=== PATIENT | female | born 1960 | race Caucasian/White ===

== ENCOUNTER 2017-04-25 07:56 | Day surgery (SDC) | payer BC ==
[~2017-04-25 07:56] MED LIST: RINGERS SOLUTION,LACTATED 1,000 ML IV ONE; RINGERS SOLUTION,LACTATED 1,000 ML IV PRN
[2017-04-25] MEDS ORDERED: RINGERS SOLUTION,LACTATED 1,000 ML IV ONE ×2 (09:56→13:10)
[2017-04-25] MEDS ORDERED: RINGERS SOLUTION,LACTATED 1,000 ML IV PRN (13:51)
--- NOTE | 2017-04-25 14:39 | OR ---
Operative Report - Dictated Report Narrative: OPERATIVE REPORT DATE OF OPERATION: 04/25/2017 PREOPERATIVE DIAGNOSIS: GERD symptoms despite medication. History of colon polyp POSTOPERATIVE DIAGNOSIS: Significant gastropathy (pathology and CLOtest pending). 3 mm cecal polyp. Incomplete colon prep. OPERATION: EGD with biopsies. Colonoscopy with hot biopsy forceps polypectomy in the cecum SURGEON: Shelia Magdaleno MD ANESTHESIA: AKIKO Johnston CRNA INDICATIONS FOR PROCEDURE: FINDINGS: Significant gastropathy with linear prepyloric erythema (pathology and CLOtest pending). Poor colon prep. 3 mm cecal polyp (pathology pending). The patient will require repeat exam after further prep today. NARRATIVE OF PROCEDURE: The patient was identified in the holding area, and prior to the administration of anesthetic, a multidisciplinary timeout was observed. EGD With the patient in the recumbent position, a bite-block was placed, intravenous sedation was administered, and the patient's eyes covered with a towel. The flexible fiberoptic gastroscope was advanced into the posterior pharynx. The supraglottic larynx appeared normal. The cords appeared normal, moved well, and opposed in the midline. The scope was advanced under direct vision into the proximal esophagus which appeared normal. The esophagus appeared freely distensible with normal mucosa. The esophageal mucosa appeared normal down to the gastroesophageal junction which was sharp and noninflamed. The GE junction appeared normally distensible. The scope was advanced into the stomach which was insufflated with air. There was distal antral erythema along prepyloric folds but no [place] ulcers or neoplastic lesions were appreciated including retroflexed view of the gastric fundus. The scope was redirected toward the pylorus. The pylorus appeared patent, again with significant erythema on prepyloric folds. The scope was advanced into the duodenal bulb which appeared normal. The scope was advanced further to the horizontal portion of the duodenum which appeared normal, specifically the villous architecture appeared well preserved and clear bile was present. The scope was slowly withdrawn through the duodenal bulb with confirmation that no active ulcer was present. The scope was withdrawn into the stomach and healthcare sales representative biopsies of gastric mucosa obtained for CLOtest and pathology. The biopsy sites were seen to be hemostatic. The insufflated air was removed, the scope withdrawn from the patient, and this portion of the procedure terminated. COLONOSCOPY With the patient in the left lateral position and after the administration of intravenous sedation, the perineum was inspected. There was no evidence of pilonidal disease or skin breakdown. The external appearance of the anus was normal. Sphincter tone was good. The flexible fiberoptic colonoscope was inserted into the rectum which was insufflated with air. The rectal mucosa and submucosal vascular pattern appeared normal, the prep was seen to marginal with adherent stool, however the scope could be advanced safely. The scope was advanced through the sigmoid colon, up the descending colon, and around the splenic flexure where the triangular haustral architecture of the transverse colon was seen. The scope was advanced across the transverse colon, around the hepatic flexure to the cecum, where the confluence of tenia and the ileocecal valve were identified. The mucosa at this level appeared normal. There was a 3 mm area of possible polypoid change from a cecal fold. This was biopsied and entirely destroyed with electrocautery. The site was seen to be complete and hemostatic. The scope was then slowly withdrawn in a circular fashion. The colon was very capacious in character, peeling open upon air insufflation. The haustral architecture however appeared well preserved throughout with no evidence of external compression. The mucosa and submucosal vascular pattern grossly appeared normal, specifically there was no gross evidence to suggest colitis or inflammatory bowel disease and no AV malformations were seen however much of the mucosa was secured by adherent stool. No diverticulosis was demonstrated. No additional polyps were encountered. The scope was gradually withdrawn to the level of the rectum. As much insufflated air as possible was removed. The scope was withdrawn from the patient and the procedure terminated. The patient tolerated the anesthetic and procedure well without complication and was transferred back to the ambulatory surgery area awake and in stable condition. I shared the operative findings with her and explained that because the colon was not adequately cleaned she would require additional prep which she elected to undergo today. She will be given additional bottle of Suprep with return to the operating room later today. Reviewed and electronically signed
--- NOTE | 2017-04-25 14:44 | OR ---
Operative Report - Dictated Report Narrative: OPERATIVE REPORT DATE OF OPERATION: 04/25/2017 (second procedure because of poor prep) PREOPERATIVE DIAGNOSIS: Poor colon prep POSTOPERATIVE DIAGNOSIS: Normal colonoscopy to the cecum with evidence of previous complete polypectomy OPERATION: Colonoscopy SURGEON: Shelia Magdaleno MD ANESTHESIA: AKIKO Johnston CRNA INDICATIONS FOR PROCEDURE: The patient is a 56-year-old female referred by Dr. Carr. Her last colonoscopy was in 2004 at which time an adenomatous polyp was removed. She was brought for colonoscopy this morning however was found to have poor colon prep, and she is brought for repeat exam after an additional bottle of Suprep FINDINGS: Normal colonoscopy to the cecum with evidence of previous complete polypectomy NARRATIVE OF PROCEDURE: The patient was identified in the holding area, and prior to the administration of anesthetic, a multidisciplinary timeout was observed. With the patient in the left lateral position and after the administration of intravenous sedation, the perineum was inspected. There was no evidence of pilonidal disease or skin breakdown. The external appearance of the anus was normal. Sphincter tone was good. The flexible fiberoptic colonoscope was inserted into the rectum which was insufflated with air. The rectal mucosa and submucosal vascular pattern appeared normal, the prep was seen to be complete. The scope was advanced through the sigmoid colon, up the descending colon, and around the splenic flexure where the triangular haustral architecture of the transverse colon was seen. The scope was advanced across the transverse colon, around the hepatic flexure to the cecum, where the confluence of tenia and the ileocecal valve were identified. The mucosa at this level appeared normal. The previous polypectomy site was seen to be complete and hemostatic. The scope was then slowly withdrawn in a circular fashion so that all aspects of colonic mucosa were inspected. The colon was somewhat capacious in caliber and slightly redundant in course. The haustral architecture appeared well preserved throughout with no evidence of external compression. The mucosa and submucosal vascular pattern appeared normal, specifically there was no gross evidence to suggest colitis or inflammatory bowel disease and no AV malformations were seen. No diverticulosis was demonstrated. No additional polyps were encountered. The scope was gradually withdrawn to the level of the rectum. As much insufflated air as possible was removed. The scope was withdrawn from the patient and the procedure terminated. The patient tolerated the anesthetic and procedure well without complication and was transferred back to the ambulatory surgery area awake and in stable condition. The patient remained stable throughout a period of postoperative observation. She denied abdominal discomfort, was able to tolerate by mouth intake, and was up without assistance. I shared the operative findings with the patient and she was given copies of the photographs which appear in the medical record. She was discharged home with instructions not to engage in hazardous activity today , but may resume normal activity tomorrow, advance diet as tolerated. She is to continue those medications as listed in the history and physical exam. I made arrangements to contatct her with the biopsy reports and will make additional recommendations for treatment and follow-up based upon those results. Reviewed and electronically signed
[2017-04-25 15:07] VITALS: BP 120/76
== END 2017-04-25 07:57 | disposition home or self-care (01) ==
LOC: AMB 07:56
PROVIDERS: ATTEND Surgery
PROC: 0DB68ZX Excision of Stomach, Via Natural or Artificial Opening Endoscopic, Diagnostic (ICD-10-PCS; principal; 2017-04-25 09:00)
PROC: 0DBH8ZX Excision of Cecum, Via Natural or Artificial Opening Endoscopic, Diagnostic (ICD-10-PCS; 2017-04-25 09:00)
DX: Z12.11 Encounter for screening for malignant neoplasm of colon (principal); D12.0 Benign neoplasm of cecum; K29.70 Gastritis, unspecified, without bleeding; K21.9 Gastro-esophageal reflux disease without esophagitis; E78.5 Hyperlipidemia, unspecified; I10 Essential (primary) hypertension; E03.9 Hypothyroidism, unspecified; D64.9 Anemia, unspecified; M17.11 Unilateral primary osteoarthritis, right knee; Z68.31 Body mass index [BMI] 31.0-31.9, adult; Z86.010 Personal history of colon polyps